=== PATIENT | male | born 2000 | race Caucasian/White ===

== ENCOUNTER 2021-12-21 13:43 | Emergency (ER) | payer SELFPAY ==
[2021-12-21 14:40] VITALS: BP 148/77; PULSE 81; RESP 20; TEMP 37.2; O2SAT 98; BMI 20.6
[2021-12-21 15:07] VITALS: BP 148/77; PULSE 81; RESP 20; TEMP 37.2; O2SAT 98
--- NOTE | 2021-12-21 15:22 | HMH.EDUTC ---
[facility] [place] Clinical Impression: Exposure to COVID-19 virus Disposition: Home, Self-Care Condition on Discharge: Good Instructions: DI for COVID-19 (Suspected or Confirmed ), Preventing the Spread of Coronavirus Discharge Instructions, DI for Viral Syndrome Additional Instructions: *Monitor Temp, Over the counter Motrin or Tylenol as directed/as needed Tylenol every 4 hours and Motrin every 6 hours (as long as your family doctor has told you that you can take it) for fever or pain. and straight to ER if unable to lower temp less than 101.0 after medication given *Warm salt water gargles may help to soothe the throat *Throat Lozenges *Warm fluids like tea with honey may help to soothe the throat *Sleep elevated *Humidifier/Vaporizer Follow up IMMEDIATELY for new or worsening symptoms or no Noticeable improvement over the next 48-72 hours. 911 for difficulty breathing or swallowing You were tested for today for COVID19 your test result should be back in the next 24-48 hours, you may check your results on the [facility] My Health Portal Make sure to take your Vitamins Vit. C Vit D and Zinc if you can take them Referrals: Yovanny Arshad MD [Primary Care Provider] - As needed Time of Disposition: 15:28 Medical Decision Making - Stewart Inquiry Pt receiving controlled substance: No Stewart was queried for this patient: No Vital Signs: 12/21/21 14:40 12/21/21 15:07 Temperature 99.0 F 99.0 F Temperature Source Temporal Artery Scan Pulse Rate 81 Pulse Rate [Right Brachial] 81 Respiratory Rate 20 20 Blood Pressure 148/77 H Blood Pressure [Right Arm] 148/77 H Blood Pressure Mean [Right Arm] 100 Blood Pressure Source [Right Arm] Automatic Cuff Blood Pressure Position [Right Arm] Sitting 02 Sat by Pulse Oximetry 98 Oxygen Delivery Method Room Air Orders (Tests/Meds): ORDERS Category Date Time Status Covid-19 Nasal PCR ([facility]) Routine Lab 12/21/21 14:40 Received [facility] [place] - General Stated complaint: covid test, h/a, runny nose Time Seen by Provider: 12/21/21 15:22 Mode of Arrival: Ambulatory Source of Information: Patient Limitations: No Limitations Description of Symptoms (Recalled from Triage Doc. by RN): PATIENT C/O HEADACHE, RUNNY NOSE SINCE LAST NIGHT. RECENTLY EXPOSED TO COVID. NEEDS TEST FOR WORK HEENT Symptoms (Recalled from RN notes): Yes Resp Symptoms (Recalled from RN notes): No Skin Symptoms (Recalled from RN notes): No MS Symptoms (Recalled from RN notes): No Functional Status (Recalled from RN notes): WNL - History of Present Illness Provider Complaint: Patient state that he was recenlty around someone that was positive for COVID State that now he is having nasal congestion, headache and feeling achy all over States that he wanted to get tested to see if he may have it - Related Data Previous Rx's Medication Instructions Recorded Sulfamethoxazole/Trimethoprim 1 each PO BID #20 tab 09/05/17 [Bactrim DS tablet] cephALEXin [Keflex 500mg Cap] 500 mg PO QID #40 cap 09/05/17 Allergies Allergy/AdvReac Type Severity Reaction Status Date / Time No Known Allergies Allergy Verified 09/05/17 20:36 - Worker's Comp Is this a Worker's Comp case?: No [facility] History - Hepatitis A Screen Attestation statement:: This patient has been screened for Hepatitis A risk factors. I have reviewed the patient's past medical history: Yes Medical History: Denies:: Cancer, Diabetes Mellitus Type 1, Diabetes Mellitus Type 2, MRSA Amputation: No Fractures: No - Social History Smoking Status: Never smoker Alcohol Intake: never Occupational Status: other ROS Obtained: Yes All systems reviewed & no additional complaints, Yes Systems reviewed as appropriate & no additional complaints - Constitutional Constitutional: Reports system reviewed and no additional complaints, except as docu, Reports body ache, Reports chills, Reports headache(s) - ENT Ears, Nose, Mouth, and Throa
== END 2021-12-21 15:34 | disposition home or self-care (01) ==
PROVIDERS: Emergency Provider Nurse Practitioner; PCP Family Medicine
DX: Z20.822 Contact with and (suspected) exposure to COVID-19 (principal); R51.9 Headache, unspecified; R09.89 Other specified symptoms and signs involving the circulatory and respiratory systems
CPT/HCPCS: 99212; C9803; G0463; U0003; U0005

== ENCOUNTER 2022-05-24 12:40 | Emergency (ER) | payer SELFPAY ==
[2022-05-24 12:45] VITALS: BP 141/76; PULSE 80; RESP 20; TEMP 36.3; O2SAT 98; BMI 20.2
--- NOTE | 2022-05-24 12:57 | ED_ITS ---
Discharge Plan Disposition Patient Disposition: Home, Self-Care Condition: Good Prescriptions Prescriptions: New tamsulosin [Flomax] 0.4 mg capsule 0.4 mg PO HS Qty: 10 0RF oxycodone-acetaminophen [Percocet] 7.5-325 mg tablet 1 tab PO Q6H PRN (Reason: pain) Qty: 10 0RF ketorolac 10 mg tablet 10 mg PO Q6H PRN (Reason: pain) 3 Days Qty: 10 0RF ondansetron HCl 4 mg tablet 4 mg PO Q8H PRN (Reason: nausea and vomiting) 3 Days Qty: 10 0RF Referrals Follow up/Referrals: Yovanny Arshad MD [Primary Care Provider] - See instructions Activity Restrictions/Add. Instructions Additional Instructions/Restrictions: Flomax as prescribed. Toradol and Percocet as needed for pain. Zofran as needed for nausea. Additional instructions for KIDNEY STONE (URETERAL CALCULUS): See your primary care provider as soon as possible for further evaluation. Drink plenty of fluids. Strain your urine and save any stones you catch. Return immediately if you develop a fever or have uncontrollable vomiting or uncontrollable pain. KIDNEY STONE DIET: Most kidney stones contain calcium oxalate. Although one would assume that you should avoid calcium/dairy to prevent kidney stones, what is actually recommended for kidney stone prevention is a diet that contains high intake of calcium, along with drinking plenty of fluids and reducing sodium intake. Recommendations: Drink a lot of water each day: A minimum would be 8-10 glasses (8 oz each) of fluid per day. Sodium: Try not to get more than 1500 mg a day. Calcium: Dietary calcium prevents absorption of oxalate which helps prevent stones. Make sure you get about 1000 to 1200 mg a day. You can get enough calcium from dairy products without taking supplements. Calcium should be ingested with meals, not in between meals. You need to get your calcium at mealtime to decrease the absorption of oxalate from other foods. Eat dairy with each meal (e.g. milk or cheese or yogurt). Oxalate: Although some experts recommend avoiding oxalate in your diet, there have been no studies that prove this works. Eating more calcium will reduce oxalate absorption, and is probably all that is needed to reduce oxalate in your urine. Oxalate containing foods are generally good for you in all other respects - leafy greens, nuts, etc... So avoiding them unnecessarily might not be the best thing for your health. ALSO: If you retrieve your stone by straining your urine, take it to your physician for stone analysis, which can help tailor your dietary recommendations. For further reading, check out the [facility] web page about the kidney stone diet: [email or web address] Additional instructions for CONTROLLED SUBSTANCES: You have been prescribed a medication that is a controlled substance. Controlled substances include pain medications known as opiates and sedative nerve medications known as benzodiazepines. Tramadol, fioricet, and gabapentin are also controlled substances. Some common opiates include: Codeine (such as Tylenol #3) Hydrocodone (Vicodin, Lortab, Lorcet, Laverne) Oxycodone (Percocet, Percodan, Oxycodone, Oxy IR) Some common benzodiazepines include: Diazepam (Valium) Lorazepam (Ativan) Alprazolam (Xanax) Clonazepam (Klonopin) Oxazepam (Serax) All of these controlled substances are highly addictive and frequently abused. Misuse can and frequently does lead to addiction as well as overdo
--- NOTE | 2022-05-24 13:01 | PC.NURSE ---
PATIENT SENT TO ER PER Cole XIONG APRN FOR FURTHER EVALUATION. REPORT GIVEN TO Elia RAMSEY RN TO Cole XIONG APRN
[2022-05-24 13:09] VITALS: BP 114/75; PULSE 77; RESP 17; TEMP 36.4; O2SAT 98; BMI 22.1
--- NOTE | 2022-05-24 13:21 | CT_ITS ---
FINAL REPORT TECHNIQUE: Axial images through the abdomen and pelvis was performed by computed tomography. This study was performed with techniques to keep radiation doses as low as reasonably achievable (ALARA). Individualized dose reduction techniques using automated exposure control or adjustment of mA and/or kV according to the patient's size were employed. CLINICAL HISTORY: ABD PAIN RLQ, GROIN PAIN, RADIATING FROM LOWER BACK, VOMITING THIS AM FINDINGS: Abdomen: Lung bases are clear. Liver, spleen, pancreas and adrenal glands have a normal CT appearance in their limited unenhanced state. There is mild right hydronephrosis and hydroureter secondary to a distal right ureteral stone. There are numerous 2 mm nonobstructing left renal stones. Pelvis: The appendix is normal. Right UVJ stone is seen on image 95. Bladder is unremarkable. No fluid collection or adenopathy is seen. IMPRESSION: Mild right hydronephrosis and hydroureter secondary to a distal right ureteral stone. Left nephrolithiasis. Reviewed, Interpreted and Dictated by Yovanny Barksdale MD Transcribed by Sandra Guillen Authenticated and [facility]
[2022-05-24 13:30] LABS: Basophils # 0.1 K/mm3 (0-0.2); Basophils % 0.3 % (0.1-2.0); Eosinophils # 0.1 K/mm3 (0.0-0.4); Eosinophils % 0.7 % (0.1-12.0); Hematocrit 46.9 % (42.0-52.0); Hemoglobin 15.9 g/dL (14.1-18.0); Lymphocytes # 1.1 K/mm3 (0.7-4.5); Lymphocytes % 5.8 % (10-50); Mean Corpuscular HGB Conc 33.9 g/dL (31.8-35.4); Mean Corpuscular Hemoglobin 29.5 pg (27.0-31.2); Mean Corpuscular Volume 87.2 fl (80-94); Mean Platelet Volume 8.5 fl (7.4-10.4); Monocytes # 0.5 K/mm3 (0.1-1.0); Monocytes % 2.6 % (1.7-9.3); Neutrophils # 16.9 K/mm3 (1.8-7.8); Neutrophils % 90.6 % (37.0-80.0); Platelet Count 312 K/mm3 (142-424); Red Blood Count 5.37 M/mm3 (4.60-6.20); Red Cell Distribution Width 12.8 % (11.5-17.5); White Blood Count 18.6 K/mm3 (4.8-10.8)
--- NOTE | 2022-05-24 13:31 | PC.NURSE ---
pt going CT
[2022-05-24 13:33] LABS: MANUAL DIFFERENTIAL MANUAL DIFFERENTIAL (MANUAL DIFF)
[2022-05-24 13:34] LABS: Chloride 104 mmol/L (98-107)
[2022-05-24 13:35] LABS: Potassium 3.9 mmoL/L (3.5-5.1); Sodium 141 mmol/L (136-145)
[2022-05-24 13:37] LABS: Alanine Aminotransferase 16 U/L (12-78); Alkaline Phosphatase 92 U/L (38-126); Anion Gap 13.9 mEq/L (5-15); Aspartate Amino Transferase 25 U/L (17-59); Bilirubin,Total 1.3 mg/dl (0.2-1.3); Blood Urea Nitrogen 9 mg/dl (9-20); Carbon Dioxide 27 mmol/L (22.0-30.0); Creatinine Clearance Estimated 128 mL/min (50-200); Estimated Glomerular Filt Rate 122 ml/min (>60); GFR (African American) 148 ML/MIN (>60)
[2022-05-24 13:38] LABS: Albumin Level 4.7 g/dl (3.5-5.0); Albumin/Globulin Ratio 1.6 (1.1-1.8); Glucose 130 mg/dl (74-100); Total Protein,Serum 7.7 g/dl (6.3-8.2)
--- NOTE | 2022-05-24 13:39 | HMH.EDGENADL ---
Discharge Plan Disposition Patient Disposition: Home, Self-Care Condition: Good Prescriptions Prescriptions: New tamsulosin [Flomax] 0.4 mg capsule 0.4 mg PO HS Qty: 10 0RF oxycodone-acetaminophen [Percocet] 7.5-325 mg tablet 1 tab PO Q6H PRN (Reason: pain) Qty: 10 0RF ketorolac 10 mg tablet 10 mg PO Q6H PRN (Reason: pain) 3 Days Qty: 10 0RF ondansetron HCl 4 mg tablet 4 mg PO Q8H PRN (Reason: nausea and vomiting) 3 Days Qty: 10 0RF Referrals Follow up/Referrals: Yovanny Arshad MD [Primary Care Provider] - See instructions Activity Restrictions/Add. Instructions Additional Instructions/Restrictions: Flomax as prescribed. Toradol and Percocet as needed for pain. Zofran as needed for nausea. Additional instructions for KIDNEY STONE (URETERAL CALCULUS): See your primary care provider as soon as possible for further evaluation. Drink plenty of fluids. Strain your urine and save any stones you catch. Return immediately if you develop a fever or have uncontrollable vomiting or uncontrollable pain. KIDNEY STONE DIET: Most kidney stones contain calcium oxalate. Although one would assume that you should avoid calcium/dairy to prevent kidney stones, what is actually recommended for kidney stone prevention is a diet that contains high intake of calcium, along with drinking plenty of fluids and reducing sodium intake. Recommendations: Drink a lot of water each day: A minimum would be 8-10 glasses (8 oz each) of fluid per day. Sodium: Try not to get more than 1500 mg a day. Calcium: Dietary calcium prevents absorption of oxalate which helps prevent stones. Make sure you get about 1000 to 1200 mg a day. You can get enough calcium from dairy products without taking supplements. Calcium should be ingested with meals, not in between meals. You need to get your calcium at mealtime to decrease the absorption of oxalate from other foods. Eat dairy with each meal (e.g. milk or cheese or yogurt). Oxalate: Although some experts recommend avoiding oxalate in your diet, there have been no studies that prove this works. Eating more calcium will reduce oxalate absorption, and is probably all that is needed to reduce oxalate in your urine. Oxalate containing foods are generally good for you in all other respects - leafy greens, nuts, etc... So avoiding them unnecessarily might not be the best thing for your health. ALSO: If you retrieve your stone by straining your urine, take it to your physician for stone analysis, which can help tailor your dietary recommendations. For further reading, check out the [facility] web page about the kidney stone diet: [email or web address]-awsmo-diet/ Additional instructions for CONTROLLED SUBSTANCES: You have been prescribed a medication that is a controlled substance. Controlled substances include pain medications known as opiates and sedative nerve medications known as benzodiazepines. Tramadol, fioricet, and gabapentin are also controlled substances. Some common opiates include: Codeine (such as Tylenol #3) Hydrocodone (Vicodin, Lortab, Lorcet, Anthony) Oxycodone (Percocet, Percodan, Oxycodone, Oxy IR) Some common benzodiazepines include: Diazepam (Valium) Lorazepam (Ativan) Alprazolam (Xanax) Clonazepam (Klonopin) Oxazepam (Serax) All of these controlled substances are highly addictive and frequently abused. Misuse can and frequently does lead to addiction as well as overdose and . Medication should be stored in a locked cabinet or other secure storage unit. Do not store the medication in a motor vehicle. Short term supplies, 3 days or less, are prescribed because of the highly addictive nature of the medication. Any of the controlled substance medication NOT taken should be disposed of properly and NOT SAVED. The recommended method of disposing of unused medications is: Place the
[2022-05-24 13:46] LABS: Lymphocytes % 6 % (10-50); Monocytes % 2 % (2-9); Neutrophils % 92 % (42-76); Platelet Estimate Normal; RBC Morphology Normal; Total Cells Counted 100
[2022-05-24 14:00] VITALS: BP 121/61; PULSE 72; RESP 17; O2SAT 98
[2022-05-24 14:03] LABS: Microscopic, Urine URINE MICROSCOPIC (MICROSCOPIC)
[2022-05-24 14:05] LABS: Appearance,Urine SL CLOUDY (Clear); Blood, Urine 3+ (Negative); Color,Urine YELLOW (Yellow); Glucose,Urine (UA) Negative (Negative); Ketones,Urine Negative (Negative); Leukocyte Esterase,Urine Negative (Negative); Nitrate,Urine Negative (Negative); PH,Urine 5.5 (5.0-8.5); Protein,Urine 1+ (Negative); Specific Gravity, Urine >= 1.030 (1.005-1.030); Urobilinogen,Urine 0.2 EU/dl (0.2)
[2022-05-24 14:18] LABS: Bilirubin,Urine 1+ (Negative)
[2022-05-24 14:21] LABS: Bacteria,Urine 1+ /lpf; RBC,Urine TNTC #/hpf (0-3); Squamous Epithelial Cell,Urine Occasional #/hpf (0-5)
[2022-05-24 15:51] VITALS: BP 107/75; PULSE 66; RESP 18; TEMP 36.8; O2SAT 99
== END 2022-05-24 15:53 | disposition home or self-care (01) ==
LOC: UTC 12:44 → ER 13:03
PROVIDERS: Emergency Provider Emergency Medicine; PCP Family Medicine
DX: R10.31 Right lower quadrant pain (principal); N20.2 Calculus of kidney with calculus of ureter; R10.2 Pelvic and perineal pain; J45.909 Unspecified asthma, uncomplicated
CPT/HCPCS: 74176; 80053; 81001; 85007; 85025; 96361; 96374; 96375; 99285; J2405

== ENCOUNTER 2024-04-27 11:15 | Emergency (ER) | payer MEDICAID, SELFPAY ==
[2024-04-27 11:16] VITALS: BP 140/93; PULSE 93; RESP 16; TEMP 36.4; O2SAT 95; BMI 19.2
[2024-04-27 12:02] LABS: Basophils # 0.1 K/mm3 (0-0.2); Basophils % 0.9 % (0.1-2.0); Eosinophils # 0.2 K/mm3 (0.0-0.4); Eosinophils % 2.5 % (0.1-12.0); Hematocrit 43.6 % (42.0-52.0); Hemoglobin 15.4 g/dL (14.1-18.0); Lymphocytes % 32.7 % (10-50); Mean Corpuscular HGB Conc 35.4 g/dL (31.8-35.4); Mean Corpuscular Hemoglobin 29.2 pg (27.0-31.2); Mean Corpuscular Volume 82.5 fl (80-94); Mean Platelet Volume 7.9 fl (7.4-10.4); Monocytes # 0.3 K/mm3 (0.1-1.0); Neutrophils # 3.6 K/mm3 (1.8-7.8); Neutrophils % 59.1 % (37.0-80.0); Platelet Count 230 K/mm3 (142-424); Red Blood Count 5.28 M/mm3 (4.60-6.20); Red Cell Distribution Width 13.2 % (11.5-17.5); White Blood Count 6.1 K/mm3 (4.8-10.8)
[2024-04-27 12:04] LABS: Albumin Level 4.5 g/dl (3.5-5.0); Chloride 106 mmol/L (98-107); Sodium 139 mmol/L (136-145)
[2024-04-27 12:05] LABS: Potassium 3.7 mmoL/L (3.5-5.1)
[2024-04-27 12:07] LABS: Alanine Aminotransferase 18 U/L (12-78); Albumin/Globulin Ratio 1.7 (1.1-1.8); Alkaline Phosphatase 81 U/L (38-126); Anion Gap 10.7 mEq/L (5-15); Aspartate Amino Transferase 30 U/L (17-59); Bilirubin,Total 0.8 mg/dl (0.2-1.3); Blood Urea Nitrogen 12 mg/dl (9-20); Carbon Dioxide 26 mmol/L (22.0-30.0); Creatinine Clearance Estimated 106 mL/min (50-200); Estimated Glomerular Filt Rate 105 ml/min (>60); GFR (African American) 127 ML/MIN (>60); Globulin 2.6 g/dL (1.3-3.2); Total Protein,Serum 7.1 g/dl (6.3-8.2)
[2024-04-27 12:08] LABS: Calcium 8.9 mg/dl (8.4-10.2); Glucose 101 mg/dl (74-100)
--- NOTE | 2024-04-27 12:09 | CT_ITS ---
FINAL REPORT TECHNIQUE: Axial images through the abdomen and pelvis were performed without contrast. This study was performed with techniques to keep radiation doses as low as reasonably achievable, (ALARA). Individualized dose reduction techniques using automated exposure control or adjustment of mA and/or kV according to the patient's size were employed. CLINICAL HISTORY: pelvic/penile pain, hematuria, h/o stones FINDINGS: ABDOMEN: The lung bases are clear. The heart size is normal. Limited images of the liver are unremarkable. The spleen is normal. No adrenal mass is identified. The aorta is normal in caliber. There is no significant free fluid or adenopathy. There are less than 3 mm bilateral nonobstructing renal stones. There is no hydronephrosis. PELVIS: The appendix is normal. He urinary bladder is unremarkable. There is no significant free fluid or adenopathy. IMPRESSION: Bilateral nephrolithiasis. Reviewed, Interpreted and Dictated by Darrell Cervantes III, MD Transcribed by Sandra Guillen Authenticated and [facility]
--- NOTE | 2024-04-27 12:10 | ED_ITS ---
Discharge Plan Disposition Patient Disposition: Home, Self-Care Condition: Good Prescriptions Prescriptions: New ciprofloxacin HCl 500 mg tablet 500 mg PO BID Qty: 20 0RF No Action tamsulosin [Flomax] 0.4 mg capsule 0.4 mg PO HS Qty: 10 0RF oxycodone-acetaminophen [Percocet] 7.5-325 mg tablet 1 tab PO Q6H PRN (Reason: pain) Qty: 10 0RF ketorolac 10 mg tablet 10 mg PO Q6H PRN (Reason: pain) 3 Days Qty: 10 0RF ondansetron HCl 4 mg tablet 4 mg PO Q8H PRN (Reason: nausea and vomiting) 3 Days Qty: 10 0RF Referrals Follow up/Referrals: Yovanny Arshad MD [Primary Care Provider] - See instructions Terry Gentile MD [Staff Physician] - See instructions Activity Restrictions/Add. Instructions Additional Instructions/Restrictions: You were evaluated in the emergency department today. At this time, your CT scan is reassuring. Please leaf size picker your prescription for antibiotics and take the full course as prescribed. I recommend close follow-up with your primary care provider as well as with urology. Make sure you stay hydrated. return to the emergency department for new or worsening symptoms. Clinical Impressions Clinical Impression: Hematuria, Cystitis Stand Alone Forms Stand Alone Forms: Work/School Release Instructions Patient Instructions: DI for Urinary Tract Infection (UTI), DI for Hematuria Print Language Print Language: Belarusian Discharge ED Provider: Paris Wakefield General Adult HPI General Chief complaint: PAIN Stated complaint: kidney stone bleeding Time Seen by Provider: 04/27/24 11:36 Mode of Arrival: Ambulatory Source of Information: Patient Limitations: No Limitations Description of Symptoms (Recalled from ER Triage Doc. by RN): pt presents to Ed with c/o possible kidney stones. pt reports he has had one in the past. pt reports that he began to have pain and bleeding with urination on friday. today pain has subsided but pt wanted to get checked out. History of Present Illness HPI narrative: This patient is a 23-year-old male with a history of kidney stones in the past presenting to the emergency department for evaluation with concern for hematuria. Patient reports that he believes he might of passed a kidney stone on Friday 4 days ago. He states that he had some pelvic pressure/penile pain and felt like he passed something in his urine, and then he has had some hematuria since then. No fevers, chills, nausea, vomiting, flank pain, or other concerns. He continues to have blood from his penis whenever he goes to urinate. He also has pain upon urination. No traumatic injury noted. No testicular pain or swelling noted. He is not sexually active. No concerns for sexual transmitted infection. Related Data Previous Rx's ?Medication ?Instructions ?Recorded ketorolac 10 mg tablet 10 mg PO Q6H PRN pain 3 days #10 05/24/22 tabs ondansetron HCl 4 mg tablet 4 mg PO Q8H PRN nausea and 05/24/22 vomiting 3 days #10 tabs oxycodone-acetaminophen 7.5 mg-325 1 tab PO Q6H PRN pain #10 tabs 05/24/22 mg tablet (Percocet) tamsulosin 0.4 mg capsule (Flomax) 0.4 mg PO HS #10 caps 05/24/22 ciprofloxacin HCl 500 mg tablet 500 mg PO BID #20 tabs 04/27/24 Allergies Allergy/AdvReac Type Severity Reaction Status Date / Time No Known Allergies Allergy Verified 09/05/17 20:36 [facility] Disclaimer: The information contained in this section may have been updated after the patient was seen, as this information can be updated by other users. Medical History Asthma Social History Smoking Status: Never smoker alcohol intake: never current occupational status: other Travel in the last 8 weeks: None ROS Obtained: Yes All systems reviewed & no additional complaints except as documented Physical Exam General General appearance: alert and in no apparent distress Head Head exam: atraumatic and normocephalic Eye Eye exam: Present normal appearance, PERRL and EOMI ENT ENT exam: Present normal exam, normal oropharynx, mucous membranes moist and normal external ear exam Neck Neck exam: Present normal inspection, full ROM and trachea midline; Absent tenderness Chest Chest inspection: Present normal inspection and symmetric chest wall rise; Absent tenderness Respiratory Respiratory exam: Present normal lung sounds bilaterally; Absent respiratory distress, wheezes, stridor or accessory muscle use Cardiovascular Cardiovascular exam: Present regular rate and normal rhythm Abdominal Exam Abdominal exam: Present soft; Absent distention, tenderness or guarding Extremities Exam Extremities exam: Present normal inspection, full ROM and normal capillary refill; Absent tenderness or edema Back Exam Back exam: Present normal inspection and full ROM; Absent tenderness Neurological Exam Neurological exam: Present alert, oriented X3, CN II-XII intact and normal gait; Absent motor sensory deficit Psychiatric Psychiatric exam: Present normal affect and normal mood Skin Skin exam: Present warm and dry Medical Decision Making Medical Records Medical records reviewed: Yes I reviewed the patient's medical records. Screening: Per USPSTF and CDC recommendations, given the prevalence of disease in our region, it is our hospital?s policy to screen for HIV and viral Hepatitis for all patients aged 18 and over and those with ongoing risk factors. Stewart Inquiry Pt receiving controlled substance: No Vital Signs: 04/27/24 11:16 04/27/24 13:48 04/27/24 14:02 Temperature 97.6 F 98.0 F Temperature Source Oral Pulse Rate 77 77 Pulse Rate [Left Radial] 93 H Respiratory Rate 16 16 Blood Pressure 104/59 L 104/59 L Blood Pressure [Right Arm] 140/93 H Blood Pressure Mean [Right Arm] 108 02 Sat by Pulse Oximetry 95 97 Oxygen Delivery Method Room Air Room Air Lab Data Lab results reviewed: Yes I reviewed the patient's lab results. Lab Results 04/27/24 11:20: Urine Color Yellow, Urine Appearance Clear, Urine pH 6.5, Ur Specific [place] <= 1.005, Urine Protein Negative, Urine Glucose (UA) Negative, Urine Ketones Negative, Urine Blood 1+ A, Urine Nitrate Negative, Urine Bilirubin Negative, Urine Urobilinogen 0.2, Ur Leukocyte Esterase Trace, Urine RBC 3-5, Urine WBC Occasional, Ur Squamous Epith Cells Occasional, Urine Bacteria Trace 04/27/24 11:40: WBC 6.1, RBC 5.28, Hgb 15.4, Hct 43.6, MCV 82.5, MCH 29.2, MCHC 35.4, RDW 13.2, Plt Count 230, MPV 7.9, Neut % (Auto) 59.1, Lymph % (Auto) 32.7, [place] % (Auto) 5.0, Eos % (Auto) 2.5, Baso % (Auto) 0.9, Neut # (Auto) 3.6, Lymph # (Auto) 2.0, [place] # (Auto) 0.3, Eos # (Auto) 0.2, Baso # (Auto) 0.1, Sodium 139, Potassium 3.7, Chloride 106, Carbon Dioxide 26, Anion Gap 10.7, BUN 12, Creatinine 0.90, Estimated Creat Clear 106, Estimated GFR 105, Est GFR ( Amer) 127, Glucose 101 H, Calcium 8.9, Total Bilirubin 0.8, AST 30, ALT 18, Alkaline Phosphatase 81, Total Protein 7.1, Albumin 4.5, Globulin 2.6, Albumin/Globulin Ratio 1.7, HIV 1&2 Antibody Rapid Nonreactive 04/27/24 11:40 04/27/24 11:40 Orders (Tests/Meds): ED MEDICATIONS Discontinued Medications Generic Name Dose Route Start Last Admin Trade Name Freq PRN Reason Stop Dose Admin Ceftriaxone Sodium 2 gm/ 100 mls @ 200 mls/hr 04/27/24 13:34 04/27/24 13:45 Sodium Chloride IV 04/27/24 14:03 200 mls/hr ONCE ONE Administration ORDERS Category Date Time Status CT abdomen pelvis wo con Stat Cat Scan 04/27/24 12:09 Completed Complete Blood Count Auto Diff Stat Lab 04/27/24 11:40 Completed Comprehensive Metabolic Panel Stat Lab 04/27/24 11:40 Completed HIV (1&2) Antibody Rapid Stat Lab 04/27/24 11:40 Completed Hep C Ab with Reflex to RNA Stat Lab 04/27/24 11:40 Received UA [Urinalysis and Microscopic] Stat Lab 04/27/24 11:20 Completed Urine Culture Stat Micro 04/27/24 11:20 Received Medical Decision Narrative: In summary, this patient is a 23-year-old male presenting to the Emergency Department for evaluation of penile pain, hematuria. Differential diagnoses considered include but are not limited to urethritis, cystitis, pyelonephritis, ureterolithiasis, STI. Ruling out the most morbid conditions drove assessment. It should be noted patient's history includes kidney stones in the past which may or may not be at goal therapy. This complicates all aspects of care by increasing patient's risk for morbidity. I reviewed patient's past medical records and noted previous evaluation for kidney stone back in May 2022. On exam, the patient is well-appearing. He has benign abdominal exam. He is had no fevers, chills, or other systemic symptoms. Vitals are reassuring on cardiac telemetry. No testicular pain or swelling to suggest testicular pathology. He denies any concerns for sexually transmitted infection. Workup included CBC, CMP, urinalysis, urine culture, urine gonorrhea chlamydia, CT abdomen pelvis without IV contrast. He declines need for pain medication or other concern at this time. I independently interpreted CT scan prior to the radiologist read and noted no obstructive uropathy or hydronephrosis. Please see their read for final interpretation. Labs were obtained that demonstrated no significant leukocytosis, reassuring chemistry with no EMILIANO, urine that is positive for blood, trace leukocyte esterase, occasional white blood cells and trace bacteria. Nitrate negative, but given patient's symptoms and hematuria, will treat as possible urinary tract infection. It is possible that he did pass a stone and has urethral trauma as a result of this given that there is not another obvious explanation, such as penile trauma, obstructive ureterolithiasis, STI.. Overall, we will plan to treat as complicated urinary tract infection and have him follow-up with urology as well as primary care. Patient was given IV Rocephin here which he tolerated well. He was discharged home with prescription for ciprofloxacin with urine culture and urine STI testing pending. Strict return precautions were given as well as instructions for close follow-up with primary care and urology Critical Care Critical Care Time Critical Care Time: No
[2024-04-27 12:12] LABS: Microscopic, Urine URINE MICROSCOPIC (MICROSCOPIC)
[2024-04-27 12:31] LABS: Appearance,Urine CLEAR (Clear); Bilirubin,Urine Negative (Negative); Blood, Urine 1+ (Negative); Color,Urine YELLOW (Yellow); Glucose,Urine (UA) Negative (Negative); Ketones,Urine Negative (Negative); Leukocyte Esterase,Urine TRACE (Negative); Nitrate,Urine Negative (Negative); PH,Urine 6.5 (5.0-8.5); Protein,Urine Negative (Negative); Specific Gravity, Urine <= 1.005 (1.005-1.030); Urobilinogen,Urine 0.2 EU/dl (0.2)
[2024-04-27 12:50] LABS: Bacteria,Urine Trace /lpf; Squamous Epithelial Cell,Urine Occasional #/hpf (0-5); WBC,Urine Occasional #/hpf (0-3)
[2024-04-27] MEDS: CEFTRIAXONE SODIUM 2 GM in 0.9 % SODIUM CHLORIDE 100 ML IV (13:45)
[2024-04-27 13:48] VITALS: BP 104/59; PULSE 77; O2SAT 97
[2024-04-27 14:02] VITALS: BP 104/59; PULSE 77; RESP 16; TEMP 36.7
[2024-04-27 15:30] LABS: HIV (1&2) Antibody Rapid NONREACTIVE (NONREACTIVE)
[2024-04-28 09:22] LABS: HCV Ab Non Reactive (Non Reactive)
[2024-04-29 05:22] LABS: Neisseria gonorrhoeae, NAA Negative (Negative)
== END 2024-04-27 14:02 | disposition home or self-care (01) ==
PROVIDERS: Emergency Provider Emergency Medicine; PCP Family Medicine
DX: N30.90 Cystitis, unspecified without hematuria (principal); R31.9 Hematuria, unspecified; R30.9 Painful micturition, unspecified
CPT/HCPCS: 74176; 80053; 81001; 85025; 86803; 87086; 87389; 87491; 87591; 96365; 99284; J0696

== ENCOUNTER 2024-05-05 18:20 | Emergency (ER) | payer MEDICAID, SELFPAY ==
--- NOTE | 2024-05-05 18:28 | [facility].EDGENADL ---
Discharge Plan Disposition Patient Disposition: Home, Self-Care Prescriptions Prescriptions: New phenazopyridine [Pyridium] 100 mg tablet 100 mg PO Q8H PRN (Reason: pain) Qty: 7 0RF No Action tamsulosin [Flomax] 0.4 mg capsule 0.4 mg PO HS Qty: 10 0RF oxycodone-acetaminophen [Percocet] 7.5-325 mg tablet 1 tab PO Q6H PRN (Reason: pain) Qty: 10 0RF ketorolac 10 mg tablet 10 mg PO Q6H PRN (Reason: pain) 3 Days Qty: 10 0RF ondansetron HCl 4 mg tablet 4 mg PO Q8H PRN (Reason: nausea and vomiting) 3 Days Qty: 10 0RF ciprofloxacin HCl 500 mg tablet 500 mg PO BID Qty: 20 0RF Referrals Follow up/Referrals: Bhargav Arshad MD [Primary Care Provider] - See instructions Activity Restrictions/Add. Instructions Additional Instructions/Restrictions: Follow-up with urology as planned. Take Pyridium as prescribed for symptoms of burning with urination. Recommend taking Tylenol and ibuprofen as needed for pain. Recommend finishing course of antibiotics. Clinical Impressions Clinical Impression: Dysuria Print Language Print Language: Surinamese Discharge ED Provider: Lupillo Molina General Adult HPI <DUC Hickey - Last Filed: 05/05/24 18:32> General Chief complaint: PAIN Stated complaint: blood in urine,lower back pain Time Seen by Provider: 05/05/24 18:25 Related Data Previous Rx's ?Medication ?Instructions ?Recorded ketorolac 10 mg tablet 10 mg PO Q6H PRN pain 3 days #10 05/24/22 tabs ondansetron HCl 4 mg tablet 4 mg PO Q8H PRN nausea and 05/24/22 vomiting 3 days #10 tabs oxycodone-acetaminophen 7.5 mg-325 1 tab PO Q6H PRN pain #10 tabs 05/24/22 mg tablet (Percocet) tamsulosin 0.4 mg capsule (Flomax) 0.4 mg PO HS #10 caps 05/24/22 ciprofloxacin HCl 500 mg tablet 500 mg PO BID #20 tabs 04/27/24 phenazopyridine 100 mg tablet 100 mg PO Q8H PRN pain #7 tabs 05/05/24 (Pyridium) Allergies Allergy/AdvReac Type Severity Reaction Status Date / Time No Known Allergies Allergy Verified 09/05/17 20:36 <Lupillo Molina MD - Last Filed: 05/05/24 20:10> General Mode of Arrival: Ambulatory Source of Information: Patient Limitations: No Limitations History of Present Illness HPI narrative: This is a 23-year-old male with a past medical history of kidney stones who presents with dysuria and hematuria for the last several days. States that he was seen a few weeks ago for similar symptoms and told that he had probably just passed a kidney stone. Was also diagnosed with a UTI at that time and treated with oral antibiotics. States that he is still taking these. States that he has had persistent dysuria and hematuria. Reports intermittent bilateral flank pain and suprapubic pain. PFSH <DUC Hickey - Last Filed: 05/05/24 18:32> [facility] Disclaimer: The information contained in this section may have been updated after the patient was seen, as this information can be updated by other users. Medical History Asthma Social History Smoking Status: Never smoker alcohol intake: never current occupational status: other Travel in the last 8 weeks: None Have you lived/traveled outside [place] in past 30 days?: No Contact w/someone who lives/traveled outside [place] past 30 days?: No Exposure to someone with infectious disease in past 14 days?: No Do you have a fever (greater than 100.4 F or 38 C)?: No Have you tested positive for COVID-19: No Exposed to someone with COVID-19 in past 14 days?: No Do you have a sore throat?: No Do you have a cough?: No Do you have any weakness?: No Do you have any diarrhea?: No Are you experiencing any unusual bleeding?: No Do you have any muscle aches/pain?: No Do you have any abdominal pain?: No Are you experiencing loss of taste or smell?: No <DUC Hickey - Last Filed: 05/05/24 18:32> ROS Obtained: Yes Systems reviewed as appropriate & no additional complaints except as documented Physical Exam <DUC Hickey - Last Filed: 05/05/24 18:32> General General appearance: alert and in no apparent distress Head Head exam: atraumatic and normal inspection Eye Eye exam: Present normal appearance, PERRL and EOMI ENT ENT exam: Present normal exam, normal oropharynx and mucous membranes moist Neck Neck exam: Present normal inspection, full ROM and trachea midline; Absent lymphadenopathy Chest Chest inspection: Present normal inspection and symmetric chest wall rise Respiratory Respiratory exam: Present normal lung sounds bilaterally; Absent accessory muscle use Cardiovascular Cardiovascular exam: Present regular rate, normal rhythm, normal heart sounds, +S1 and +S2 Abdominal Exam Abdominal exam: Present soft and normal bowel sounds; Absent tenderness, guarding or rebound Extremities Exam Extremities exam: Present normal inspection and full ROM Neurological Exam Neurological exam: Present alert, oriented X3 and CN II-XII intact Psychiatric Psychiatric exam: Present normal affect and normal mood Skin Skin exam: Present warm, dry and normal color Lymphatic Lymphatic Findings: no adenopathy Medical Decision Making <DUC Hickey - Last Filed: 05/05/24 18:32> Medical Records Screening: Per USPSTF and CDC recommendations, given the prevalence of disease in our region, it is our hospital?s policy to screen for HIV and viral Hepatitis for all patients aged 18 and over and those with ongoing risk factors. Vital Signs: 05/05/24 18:39 05/05/24 19:15 Temperature 98.3 F Temperature Source Oral Pulse Rate 77 Pulse Rate [Right Radial] 85 Respiratory Rate 18 Blood Pressure 115/63 Blood Pressure [Right Arm] 122/75 Blood Pressure Mean [Right Arm] 90 02 Sat by Pulse Oximetry 97 98 Lab Data Lab Results 05/05/24 18:25: Urine Color Yellow, Urine Appearance Clear, Urine pH 6.0, Ur Specific [place] 1.010, Urine Protein Negative, Urine Glucose (UA) Negative, Urine Ketones Negative, Urine Blood 2+ A, Urine Nitrate Negative, Urine Bilirubin Negative, Urine Urobilinogen 0.2, Ur Leukocyte Esterase Negative, Urine RBC 20-50, Ur Squamous Epith Cells Occasional, Urine Bacteria Trace Orders (Tests/Meds): ED MEDICATIONS Discontinued Medications Generic Name Dose Route Start Last Admin Trade Name Freq PRN Reason Stop Dose Admin Phenazopyridine HCl 100 mg 05/05/24 20:02 05/05/24 20:08 Phenazopyridine 200mg Tablet PO 05/05/24 20:03 Not Given ONCE ONE Phenazopyridine HCl 200 mg 05/05/24 20:03 05/05/24 20:05 Phenazopyridine 200mg Tablet PO 05/05/24 20:04 200 mg ONCE ONE Administration ORDERS Category Date Time Status CT abdomen pelvis wo con Stat Cat Scan 05/05/24 18:33 Completed UA [Urinalysis and Microscopic] Stat Lab 05/05/24 18:25 Completed Medical Decision Narrative: In summary patient is a [age, sex] who presents to the emergency department for evaluation of [complaint]. Patient is [hemodynamically stable/unstable] upon arrival, [febrile/afebrile]. [Unremarkable physical exam, nonfocal exam versus focal remarkable exam]. Differential diagnosis includes [DDx]. Initial workup will be conducted with [hematologic labs, imaging, respiratory swab, describe workup]. Initial interventions include [crystalloid bolus, medications, p.o. challenge, etc.] initial workup reviewed by me [hematologic labs are remarkable for... Imaging remarkable for... Urinalysis remarkable for]. Upon repeat evaluation [patient had acceptable resolution of symptoms, had persistent pain for which additional interventions were conducted (describe interventions), tolerated p.o., was ambulatory, etc.]. Given this [patient is appropriate for discharge at this time and will be discharged with a prescription for... The case was discussed with hospital medicine regarding management and they will admit the patient their service for continued evaluation at this time... Etc.] Places where you can increase complexity: I informally interpreted the patient's chest x-ray or CT read and is remarkable for... Documenting what the hall monitor shows with rate and rhythm Consideration of test but deferring. Ex: I considered chest x-ray on this patient however given that they have no oxygen requirement and are clear to auscultation all lung paez will be deferred. Social determinants of health: Given that patient is undomiciled increases complexity. Given that patient has polysubstance abuse compounds all aspects of care <Lupillo Molina MD - Last Filed: 05/05/24 20:10> Medical Records MR Comment: Reviewed emergency department visit from 06/28/2023 notable for patient's diagnosis with cystitis and discharged with ciprofloxacin [place] Inquiry Pt receiving controlled substance: No Vital Signs: 05/05/24 18:39 05/05/24 19:15 Temperature 98.3 F Temperature Source Oral Pulse Rate 77 Pulse Rate [Right Radial] 85 Respiratory Rate 18 Blood Pressure 115/63 Blood Pressure [Right Arm] 122/75 Blood Pressure Mean [Right Arm] 90 02 Sat by Pulse Oximetry 97 98 Lab Data Lab Results 05/05/24 18:25: Urine Color Yellow, Urine Appearance Clear, Urine pH 6.0, Ur Specific [place] 1.010, Urine Protein Negative, Urine Glucose (UA) Negative, Urine Ketones Negative, Urine Blood 2+ A, Urine Nitrate Negative, Urine Bilirubin Negative, Urine Urobilinogen 0.2, Ur Leukocyte Esterase Negative, Urine RBC 20-50, Ur Squamous Epith Cells Occasional, Urine Bacteria Trace Orders (Tests/Meds): ED MEDICATIONS Discontinued Medications Generic Name Dose Route Start Last Admin Trade Name Freq PRN Reason Stop Dose Admin Phenazopyridine HCl 100 mg 05/05/24 20:02 05/05/24 20:08 Phenazopyridine 200mg Tablet PO 05/05/24 20:03 Not Given ONCE ONE Phenazopyridine HCl 200 mg 05/05/24 20:03 05/05/24 20:05 Phenazopyridine 200mg Tablet PO 05/05/24 20:04 200 mg ONCE ONE Administration ORDERS Category Date Time Status CT abdomen pelvis wo con Stat Cat Scan 05/05/24 18:33 Completed UA [Urinalysis and Microscopic] Stat Lab 05/05/24 18:25 Completed Medical Decision Narrative: In summary, this is a 23-year-old male presents to the emergency department today with hematuria and dysuria. On initial evaluation patient is afebrile, hemodynamically stable, nontoxic-appearing. Differential diagnosis includes but is not limited to urolithiasis, cystitis, pyelonephritis,. Based on these concerns, I ordered CT abdomen/pelvis without IV contrast and UA. Labs personally reviewed demonstrate hematuria and no evidence of UTI. CT imaging personally interpreted demonstrates bilateral small nephrolithiasis which would not likely be explanatory for patient's symptoms.. On reassessment in stable condition and in no acute distress. Provided with Pyridium for dysuria. He has follow-up with urology on Friday. Appropriate for discharge at this time. Critical Care <Lupillo Molina MD - Last Filed: 05/05/24 20:10> Critical Care Time Critical Care Time: No
--- NOTE | 2024-05-05 18:33 | CT_ITS ---
PROCEDURE INFORMATION: Exam: CT Abdomen And Pelvis Without Contrast Exam date and time: 05/05/2024 6:42 PM Age: 23 years old Clinical indication: Abdominal pain; Additional info: Eval for urolithiasis TECHNIQUE: Imaging protocol: Computed tomography of the abdomen and pelvis without contrast. Radiation optimization: All CT scans at this facility use at least one of these dose optimization techniques: automated exposure control; mA and/or kV adjustment per patient size (includes targeted exams where dose is matched to clinical indication); or iterative reconstruction. COMPARISON: CT ABDOMEN PELVIS WO CON 04/27/2024 12:21 PM FINDINGS: Liver: Normal. No mass. Gallbladder and biliary ducts: Normal. No calcified stones. No ductal dilation. Pancreas: Normal. No ductal dilation. Spleen: Normal. No splenomegaly. Adrenal glands: Normal. No mass. Kidneys and ureters: Several tiny calyceal stones noted in both kidneys. No evidence of obstructing ureteral stone or hydronephrosis. Stomach and bowel: Unremarkable. No obstruction. No mucosal thickening. Appendix: The appendix is visualized and appears normal. Intraperitoneal space: Unremarkable. No free air. No significant fluid collection. Vasculature: Unremarkable. No abdominal aortic aneurysm. Lymph nodes: Unremarkable. No enlarged lymph nodes. Urinary bladder: Unremarkable as visualized. Reproductive: Unremarkable as visualized. Bones/joints: Unremarkable. No acute fracture. Soft tissues: Unremarkable. IMPRESSION: Mild bilateral nephrolithiasis. No evidence of obstructing ureteral stone or hydronephrosis. Otherwise unremarkable study.
[2024-05-05 18:39] VITALS: BP 122/75; PULSE 85; RESP 18; TEMP 36.8; O2SAT 97; BMI 19.2
[2024-05-05 18:42] LABS: Microscopic, Urine URINE MICROSCOPIC (MICROSCOPIC)
[2024-05-05 18:47] LABS: Appearance,Urine CLEAR (Clear); Bilirubin,Urine Negative (Negative); Blood, Urine 2+ (Negative); Color,Urine YELLOW (Yellow); Glucose,Urine (UA) Negative (Negative); Ketones,Urine Negative (Negative); Leukocyte Esterase,Urine Negative (Negative); Nitrate,Urine Negative (Negative); Protein,Urine Negative (Negative); Urobilinogen,Urine 0.2 EU/dl (0.2)
[2024-05-05 19:15] VITALS: BP 115/63; PULSE 77; O2SAT 98
[2024-05-05 19:35] LABS: RBC,Urine 20-50 #/hpf (0-3)
[2024-05-05 19:36] LABS: Bacteria,Urine Trace /lpf; Squamous Epithelial Cell,Urine Occasional #/hpf (0-5)
[2024-05-05] MEDS: PHENAZOPYRIDINE 200MG TABLET 200 MG PO (20:05)
[2024-05-05 20:14] VITALS: BP 118/67; PULSE 77; RESP 16; TEMP 36.9; O2SAT 96
== END 2024-05-05 20:14 | disposition home or self-care (01) ==
PROVIDERS: Emergency Provider Student in an Organized Health Care Education/Training Program; PCP Psychiatry & Neurology Sleep Medicine
DX: R30.0 Dysuria (principal); M54.50 Low back pain, unspecified; R31.9 Hematuria, unspecified; R10.9 Unspecified abdominal pain; R10.2 Pelvic and perineal pain; Z59.819 Housing instability, housed unspecified
CPT/HCPCS: 74176; 81001; 99284

== ENCOUNTER 2024-05-10 15:31 | Outpatient (CLI) | payer MEDICAID, SELFPAY ==
[2024-05-10 15:18] LABS: Microscopic, Urine URINE MICROSCOPIC (MICROSCOPIC)
[2024-05-10 15:29] LABS: Appearance,Urine CLEAR (Clear); Bilirubin,Urine Negative (Negative); Blood, Urine 2+ (Negative); Color,Urine YELLOW (Yellow); Glucose,Urine (UA) Negative (Negative); Ketones,Urine Negative (Negative); Leukocyte Esterase,Urine Negative (Negative); Nitrate,Urine POSITIVE (Negative); Protein,Urine Negative (Negative); Specific Gravity, Urine 1.025 (1.005-1.030); Urobilinogen,Urine 0.2 EU/dl (0.2)
[2024-05-10 16:16] LABS: Bacteria,Urine 1+ /lpf; RBC,Urine TNTC #/hpf (0-3)
[2024-05-10 16:17] LABS: Mucus,Urine 2+ /lpf
== END 2024-05-10 23:59 | disposition home or self-care (01) ==
LOC: LAB.DROPOF 15:32
PROVIDERS: PCP Urology; Visit Provider Urology
DX: R31.9 Hematuria, unspecified (principal)
CPT/HCPCS: 81001; 87086